=== PATIENT | female | born 1985 | race African-American/Black ===

== ENCOUNTER 2022-05-29 10:36 | Inpatient (IN) | payer OTHER, SELFPAY ==
[2022-05-29] MEDS ORDERED: Dextrose 5% in Water 1,000 ML IV PRN (11:44)
[2022-05-29] MEDS ORDERED: HumaLOG 300 UNITS/3 ML VIAL SC PRN ×2 (11:44)
[2022-05-29] MEDS ORDERED: Dextrose 50% Abboject 50 ML SYRINGE SLOW IVP PRN (11:44)
[2022-05-29] MEDS ORDERED: Acetaminophen 325 MG TAB PO PRN (11:49)
[2022-05-29] MEDS ORDERED: Ondansetron PF 4 MG/2 ML Vial IVP PRN (11:49)
[2022-05-29] MEDS ORDERED: Acetaminophen 650 MG Suppository PR PRN (11:49)
[2022-05-29] MEDS ORDERED: Senokot S 8.6-50 MG TAB PO PRN (11:49)
[2022-05-29] MEDS ORDERED: Ondansetron ODT 4 MG TAB PO PRN (11:49)
[2022-05-29 12:27] LABS: #Basophils 0.1 10x3/uL (0.0-0.2); #Eosinphils 0.1 10x3/uL (0.0-0.5); #Monocytes 0.5 10x3/uL (0.0-1.1); %Basophils 1.2 % (0.0-2.0); %Lymphocytes 38.3 % (18.0-47.0); %Monocytes 7.7 % (0.0-10.0); %Neutrophils 51.6 % (40.0-75.0); Hemoglobin 10.2 g/dL (12.0-15.5); Mean Corpuscular HGB CONC 30.6 g/dL (32.0-36.0); Mean Corpuscular Hemoglobin 25.2 pg (27.0-33.0); Mean Corpuscular Volume 82.2 fl (81.6-98.3); Mean Platelet Volume 12.3 fl (7.4-10.4); Platelet Count 342 10x3/uL (150-450); RBC Distribution Width 13.2 % (11.5-14.5); Red Blood Cell (RBC) Count 4.05 10x6/uL (3.90-5.03); White Blood Cell (WBC) Count 5.9 10x3/uL (3.5-10.5)
[2022-05-29 12:41] LABS: Acetaminophen Less than 10.0 mcg/mL (10.0-30.0); Anion Gap 12 mmol/L (10-20); BUN (Urea Nitrogen) 8 mg/dL (7.0-18.7); Calc. Creatinine Clearance 0 mL/min (70-130); Calcium 9.6 mg/dL (7.8-10.44); Carbon Dioxide 25 mmol/L (22-29); Chloride 101 mmol/L (98-107); Estimated GFR 89; Glucose 310 mg/dL (70-105); Magnesium 1.8 mg/dL (1.6-2.6); Phosphorus 3.2 mg/dL (2.3-4.7); Potassium 4.4 mmol/L (3.5-5.1); Salicylate Less than 8.0 mg/dL (15.0-30.0); Sodium 134 mmol/L (136-145)
[2022-05-29 16:13] VITALS: BMI 36.4
[2022-05-29] MEDS: methylPREDNISolone Sod Succ 1 GM in Sodium Chloride 0.9% 250 ML 250 ML IVPB SCH (16:50)
[2022-05-29] MEDS: Sodium Chloride 0.9% 1,000 ML IV SCH (16:51)
[2022-05-29 18:58] LABS: SARS-CoV-2 NAA Rapid Test Not Detected (NotDetected)
[2022-05-29 19:12] LABS: Amphetamine Not Detected (NotDetected); Barbiturates Screen Not Detected (NotDetected); Benzodiazepine Screen Not Detected (NotDetected); Cocaine Metabolite Screen Not Detected (NotDetected); Methadone Not Detected (NotDetected); Methamphetamine Not Detected (NotDetected); Opiate Screen Not Detected (NotDetected); Oxycodone Screen Not Detected (NotDetected); Phencyclidine (PCP) Not Detected (NotDetected); THC/Cannabinoid Screen Not Detected (NotDetected); Tricyclic Screen Not Detected (NotDetected)
[2022-05-29] MEDS ORDERED: HumaLOG 300 UNITS/3 ML VIAL SC SCH (22:00)
[2022-05-30] MEDS: HumaLOG 300 UNITS/3 ML VIAL SC PRN ×5 (01:41→23:02)
[2022-05-30 04:14] LABS: #Neutrophils 7.2 10x3/uL (1.5-8.4); %Basophils 0.1 % (0.0-2.0); %Lymphocytes 9.5 % (18.0-47.0); %Monocytes 0.4 % (0.0-10.0); %Neutrophils 89.7 % (40.0-75.0); Hemoglobin 9.8 g/dL (12.0-15.5); Mean Corpuscular HGB CONC 30.7 g/dL (32.0-36.0); Mean Corpuscular Hemoglobin 24.7 pg (27.0-33.0); Mean Corpuscular Volume 80.6 fl (81.6-98.3); Platelet Count 330 10x3/uL (150-450); RBC Distribution Width 12.9 % (11.5-14.5); Red Blood Cell (RBC) Count 3.96 10x6/uL (3.90-5.03)
[2022-05-30 04:38] LABS: Anion Gap 12 mmol/L (10-20); BUN (Urea Nitrogen) 12 mg/dL (7.0-18.7); Calc. Creatinine Clearance 182 mL/min (70-130); Calcium 9.4 mg/dL (7.8-10.44); Carbon Dioxide 22 mmol/L (22-29); Cardiac Risk 2.6 (Less than 4.5); Chloride 104 mmol/L (98-107); Cholesterol 208 mg/dl (< 200 Desired); Estimated GFR 94; Glucose 317 mg/dL (70-105); HDL Cholesterol 80 mg/dL (>60 Neg Risk); LDL Cholesterol, Calculated 121 mg/dL; Potassium 4.2 mmol/L (3.5-5.1); Sodium 134 mmol/L (136-145); Triglycerides 36 mg/dL (Less than 150)
[2022-05-30] MEDS: Sodium Chloride 0.9% 1,000 ML IV SCH (06:10)
[2022-05-30] MEDS: Aspirin 81 mg Enteric Coated Tablet PO SCH (08:01)
[2022-05-30] MEDS ORDERED: Sodium Bicarbonate 2.5 MEQ/5 ML VIAL ONE (10:36)
[2022-05-30] MEDS ORDERED: Lidocaine 1% PF 5 ML VIAL ONE (10:36)
[2022-05-30 12:04] LABS: CSF, Glucose 160 mg/dl (40-70); CSF, Protein 17 mg/dL (15-40)
[2022-05-30 12:27] LABS: CSF Source CSF; Clarity Clear (Clear); Tube # 4
[2022-05-30 12:28] LABS: CSF RBC Count - Manual 2 /cu.mm (None Seen); CSF WBC/NonHematics Count-Man 3 /cu.mm (0-5)
[2022-05-30] MEDS: HYDROcodone/Acetaminophen 5/325 mg Tablet PO PRN ×2 (12:46→21:59)
[2022-05-30] MEDS: methylPREDNISolone Sod Succ 1 GM in Sodium Chloride 0.9% 250 ML 250 ML IVPB SCH (16:49)
[2022-05-30] MEDS ORDERED: NPH, Human Insulin Isophane 300 UNIT/3 ML VIAL SC SCH (18:30)
[2022-05-30] MEDS ORDERED: Insulin NPH Human Isophane 100 UNIT/ML (10 ML VIAL) SC SCH (18:45)
[2022-05-31] MEDS: HumaLOG 300 UNITS/3 ML VIAL SC PRN ×3 (06:33→16:53)
[2022-05-31] MEDS ORDERED: Lantus 1000 UNITS/10 ML VIAL SC SCH (09:00)
[2022-05-31] MEDS: metFORMIN 500 MG TAB PO SCH ×2 (10:06→16:52)
[2022-05-31] MEDS: Aspirin 81 mg Enteric Coated Tablet PO SCH (10:19)
[2022-05-31 13:00] VITALS: TEMP 98.8
[2022-05-31] MEDS: methylPREDNISolone Sod Succ 1 GM in Sodium Chloride 0.9% 250 ML 250 ML IVPB SCH (16:55)
[2022-05-31 17:02] VITALS: BP 116/69
== END 2022-05-31 18:46 | disposition home or self-care (01) | DRG 59 ==
LOC: CSHERS 10:36 → CSHTELE 15:29 → OBSVTOIN 05-30 18:25
PROVIDERS: ADMIT Family Medicine; ATTEND Family Medicine
PROC: 009U3ZX Drainage of Spinal Canal, Percutaneous Approach, Diagnostic (ICD-10-PCS; principal; 2022-05-30)
PROC: B01B1ZZ Fluoroscopy of Spinal Cord using Low Osmolar Contrast (ICD-10-PCS; 2022-05-30)
DX: G35 Multiple sclerosis (principal); E87.1 Hypo-osmolality and hyponatremia; I50.20 Unspecified systolic (congestive) heart failure; Q21.12 Patent foramen ovale; E66.01 Morbid (severe) obesity due to excess calories; R47.1 Dysarthria and anarthria; E11.65 Type 2 diabetes mellitus with hyperglycemia; R47.81 Slurred speech; R29.810 Facial weakness; R53.1 Weakness; Z79.4 Long term (current) use of insulin; Z98.890 Other specified postprocedural states; Z68.36 Body mass index [BMI] 36.0-36.9, adult; Z79.84 Long term (current) use of oral hypoglycemic drugs; Z98.51 Tubal ligation status; Z20.822 Contact with and (suspected) exposure to COVID-19; D64.9 Anemia, unspecified
CPT/HCPCS: 36415; 36416; 62270; 70551; 70552; 80048; 80061; 80143; 80179; 80306; 82040; 82042; 82784; 82945; 83735; 83916; 84100; 84157; 85025; 89051; 93306; 94760; 95816; 95819; 95957; 96374; 96376; 80307; G0378; J1815; J2930; J7050; U0002